=== PATIENT | female | born 1935 | race Caucasian/White ===

== ENCOUNTER 2021-03-29 07:27 | Day surgery (SDC) | payer OTHER ==
[2021-03-28 15:23] LABS: Absolute Lymphocytes (CBC) 1.2 K/uL (0.7-4.9); Basophils % 0.3 % (0-1.3); Hematocrit 30.7 % (36.0-45.0); Lymphocytes % 10.7 % (15.3-44.8)
[2021-03-28 15:34] LABS: Protime INR 0.93
[2021-03-29] MEDS ORDERED: CEFAZOLIN/NS 1gm 1 GM/50 ML BAG ONE (07:50)
[2021-03-29] MEDS ORDERED: Ringers Lactate 0 ML IV ONE (07:50)
[2021-03-29] MEDS ORDERED: SCOPOLAMINE HYDROBROMIDE PATCH TD ONE (07:51)
[2021-03-29] MEDS ORDERED: NA CHLORIDE 0.9% 500 ML ONE (07:54)
[2021-03-29] MEDS ORDERED: VANCOMYCIN 1 GM/VIAL ONE (08:05)
[2021-03-29] MEDS ORDERED: BUPIVACAINE 0.25% PF 30 ML VIAL ONE (08:14)
[2021-03-29] MEDS ORDERED: CEFTRIAXONE 1 GM/NS 50 ML 1 GM/50 ML BAG IV ONE (08:15)
[2021-03-29] MEDS ORDERED: HEPARIN 500 UNIT/5 ML SYR IV ONE ×2 (08:17)
[2021-03-29] MEDS ORDERED: MIDAZOLAM HCL 2 MG/2 ML INJ ONE ×2 (08:20→11:35)
[2021-03-29] MEDS ORDERED: FENTANYL CITR 100 MCG/2 ML ONE ×2 (08:20→10:34)
[2021-03-29] MEDS ORDERED: propofoL 200 MG/20 ML VIAL IV ONE (08:20)
[2021-03-29] MEDS ORDERED: dexAMETHasone 10 MG/ML VIAL ONE (08:22)
[2021-03-29] MEDS ORDERED: GLYCOPYRROLATE 0.2 MG/ML SYR ONE (08:22)
[2021-03-29] MEDS ORDERED: LIDOCAINE 2% MPF 5 ML VIAL ONE (08:22)
[2021-03-29] MEDS ORDERED: ONDANSETRON 4 MG/2 ML VIAL ONE ×2 (08:22→11:22)
[2021-03-29] MEDS ORDERED: ROCURONIUM 50 MG/5 ML VIAL IV ONE (08:23)
[2021-03-29] MEDS ORDERED: NEOSTIGMINE 1 MG/ML -5 ML ONE (08:23)
[2021-03-29] MEDS ORDERED: HEPARIN 5000 UNIT/ML 1 ML VIAL ONE (08:38)
[2021-03-29] MEDS ORDERED: NS 0.9% VIAL 10 ML ONE (08:38)
[2021-03-29] MEDS ORDERED: LIDOCAINE 1% MPF 30 ML VIAL ONE (08:39)
[2021-03-29] MEDS ORDERED: NA CHLORIDE 0.9% 50 ML ONE (08:48)
[2021-03-29] MEDS ORDERED: EPHEDRINE SULF 50 MG/ML VIAL ONE (09:00)
[2021-03-29] MEDS ORDERED: CLINDAMYCIN 600MG/D5W 600 MG/50 ML BAG IV ONE (09:00)
[2021-03-29] MEDS ORDERED: Phenylephrine HCl 10 MG/ML 1 ML VIAL ONE (09:00)
--- NOTE | 2021-03-29 10:25 | RAD REPORT ---
EXAM DESCRIPTION: RAD - Fluoroscopy >1 Hr - 03/29/2021 9:58 am CLINICAL HISTORY: Device placement central venous catheter placement FINDINGS: A central venous catheter was placed. One limb lies within the superior vena cava. The oth er the right atrium. Thirty-one fluoroscopic spot images obtained. The examination was performed by Bob Rey Fluoroscopy time 1.5 minutes
[2021-03-29] MEDS ORDERED: Mastisol Adhesive Liq ONE (10:44)
--- NOTE | 2021-03-29 10:49 | P.OP ---
Preoperative diagnosis: End Stage Renal disease on Dialysis Postoperative diagnosis: End Stage Renal disease on Dialysis Primary procedure: Placement of Tunnelled RIGHT IJ HD Cateter under ultrasound and flouroscopy Secondary procedure: Laparoscopic placement of peritoneal dialysis catheter Other procedure(s): removal of double cuffed peritoneal dialysis catheter - non- functional Anesthesia: GETA + Local Estimated blood loss: <20cc Specimen: none Findings: dark non-pulsatile blood, intra-abdominal adhesions Complications: None Implants: Celeste Standard Double cuffed PD catheter, 19cm Hemosplit HD catheter Transferred to: Recovery Room Condition: Good
[2021-03-29] MEDS: HYDROMORPHONE HCL 1 MG/ML INJ ONE ×2 (11:17→11:44)
--- NOTE | 2021-03-29 11:31 | RAD REPORT ---
EXAM DESCRIPTION: Saida Single View03/29/2021 11:24 am CLINICAL HISTORY: Device placement/central venous catheter placement IMPRESSION: Central venous catheter with 1 limb in the superior vena cava. The other limb in the rig ht atrium No pneumothorax
[2021-03-29] MEDS: PROMETHAZINE INJ 25 MG/ML AMP ONE ×2 (11:52→12:12)
[2021-03-29] MEDS ORDERED: TRAMADOL HCL 50 MG TAB ONE (12:42)
[2021-03-29 13:15] VITALS: TEMP 97.6
[2021-03-29 14:40] VITALS: BP 135/77; O2SAT 99
--- NOTE | 2021-04-04 11:39 | OP ---
Date of Procedure: 03/30/2021 Surgeon: Ky Rey MD, Preoperative Diagnosis: End-stage renal disease, dependent upon dialysis. Postoperative Diagnosis: End-stage renal disease, dependent upon dialysis. Procedure Performed: 1.Placement of a tunneled right internal jugular hemodialysis catheter using ultrasound, fluoroscopy , and micro introducer set. 2.Laparoscopic placement of peritoneal double cuffed dialysis catheter. 3.Removal of double cuffed peritoneal dialysis catheter, which was nonfunctional. Anesthesia: General endotracheal plus local with 0.25% Marcaine. Estimated Blood Loss: 20 mL. Specimen: None. Findings: 1.Dark red nonpulsatile blood returned from right internal jugular hemodialysis catheter. Fluorosco py confirmed position of the hemodialysis catheter in the correct position. 2.Significant intraabdominal adhesions to the anterior abdominal wall from the omentum as well as fr om the previously placed peritoneal dialysis catheter completely contained within the scar tissue at the peritoneum. Complications: None. Implants: 1.Merit standard double-cuffed peritoneal dialysis catheter. 2.19 cm HemoSplit hemodialysis catheter. Disposition: The patient transferred to recovery room in good condition. Procedure In Detail: After informed was obtained, the patient was brought to the operating room, pre pped and draped in the usual sterile fashion after adequate anesthesia was achieved. The patient was placed in steep Trendelenburg position. I performed ultrasound evaluation and interrogation of the right internal jugular vein and found to be patent at this time. I numbed the overlying skin with 0. 5% Marcaine and at this point, inserted a micro introducer micropuncture needle into the internal jug ular vein under ultrasound guidance without incident or complication. I then advanced the micro wire at this point without incident or complication. At this point, fluoroscopy confirmed position of th e micro wire in the right superior vena cava. At this point, I placed the micro introducer, removed the micro wire, and advanced the standard wire. Ectopy was noted on the laboratory monitor as well as confi rmed position with the fluoroscopy at this point. I then removed the microintroducer sheath and left the wire in place. I made a separate incision on the chest wall and after anesthetizing the tract t o the insertion site, I passed a 19 cm HemoSplit catheter over the collarbone and brought it out thro ugh the insertion site. Sequential dilatation was performed, at this point, with minimal difficulty. However, the introducer sheath did not go in easily at this point and no blood was returned after p assing the introducer sheath. At this point, I backed the introducer sheath out, readvanced the wire prior to removal and found it to be in good anatomic position. At this point, I then advanced the i ntroducer sheath without incident or complication and dark red nonpulsatile blood was returned and po sition was confirmed with fluoroscopy. I then inserted the 19 cm catheter into the superior vena cav a under fluoroscopy guidance. At this point, the wire was removed and catheter was found to be in go od position. The wire was removed prior to the catheter introduction. The catheter was then introdu jerson into the superior vena cava under fluoroscopic guidance. At this point, the catheter withdrew da rk red nonpulsatile blood easily and both ports flushed quite easily with saline. I then packed thes e ports with heparin solution/super flushed and placed caps on the end of the catheter at this point and performed 1 last chest x-ray to confirm position of the catheter in the SVC, which was found to b e in good position at this point. I then secured the catheter using 2-0 nylon sutures and closed the introduction site with a single interrupted 2-0 nylon suture and sterile dressing placed over top. The patient was then taken out of the Trendelenburg position. At this point, I then turned my attent ion to placement of a laparoscopic peritoneal dialysis catheter. After appropriately anesthetizing t he skin in the left upper quadrant, I made a small stab incision and a 5 mm 0-degree optical trocar w as introduced in the abdomen without any evidence of complication. Insufflation was obtained to 15 m mHg, at this time. No injury to vital structures upon entering the abdomen. Additional trocar site chose in the left mid abdomen. This was similarly anesthetized, sharply incised and a 5 mm trocar wa s placed under direct visualization without any evidence of complication. At this point, I placed th e patient in Trendelenburg position in and found that there was significant intraabdominal adhesions particularly from the omentum to the anterior abdominal wall and scar tissue/omental adhesions around the insertion of the previously placed right-sided abdominal peritoneal dialysis catheter. At this point, the abdomen was previously mapped preoperatively for placement of the Merit double cuffed peyton dard peritoneal dialysis catheter. At this point, I palpated the area and inspected it intraperitone ally and found it to be a good landing zone for the hemodialysis catheter. I made an incision overly ing the previous sentinel jesenia and inserting the introducing cannula at approximately 30 degree angle , I then performed sequential dilatation of the insertion catheter sheath and then placed the cathete r curling the catheter toward the pelvis. At this point, I ensured the distal cuff was in the rectus sheath and following the map markings from the exit site, I brought the catheter using the tunneling device out through a separate stab incision which was previously stencilled on the abdominal wall on the left side. At this point, the catheter was releasing air and fluid from the abdomen and a cap w as placed on at this point. I then desufflated the abdomen at this point and left the trocars in nancy ce. I then inserted 1 L of saline under infusion at this point into the peritoneal cavity and placed the IV back on the floor to allow for return of 950 cc return within 5 minutes of abdominal effluent without manipulation. At this point, I capped the tubing, disconnected at this point, and placed a cap on the end of the tubing. I flushed the tube with saline one last time and packed with heparin. I then capped the tube once again. The patient was positioned back in neutral position. Insufflati on was obtained at this point. The catheter found to be in good position. I then closed the incisio ns of the insertion with 3-0 Vicryl in the deep dermal plane and 4-0 Monocryl at the subcutaneous pos ition. At this point, I turned my attention to removal of the previously placed peritoneal dialysis catheter in the right abdomen, which was nonfunctional. I then made an incision at the insertion sit e and was able to bring the subcutaneous cuff into the surgical field and using a combination of benigno p and blunt dissection, I was able to remove this cuff at this point. I then palpated down to the di stal cuff and made an incision through the previous incision over the abdominal wall and palpated the deep rectus cuff at this point and pulled this into the surgical field and once again removed the cu ff adhesive tissue surrounding this cuff to allow free mobility. At this point, I cut the catheter i n half with Kamara scissors and removed the distal aspect of the catheter and then pulled the remaining catheter out of the peritoneal cavity. I palpated the area and found it to be quite closed at this point without any leakage of air or fluid from the peritoneal cavity and as such, I irrigated these a reas and closed them with a 3-0 Vicryl on the deep cuff site as well as subcutaneous 4-0 Monocryl in a running fashion and Dermabond placed over top. I closed the catheter exit site with 2-0 nylon sutu re in an interrupted fashion. I then re-insufflated the abdomen once again and inspected one last ti me, and I did adhesiolysis laparoscopically using the LigaSure device to take the scar tissue down fr om the right abdominal insertion site to allow for minimal adhesions to the anterior abdominal wall h opefully to preclude internal herniation around the significant fibrous tissue, which was at the prev iously placed catheter insertion site. At this point, the abdomen was desufflated under direct visua lization. All the trocars were removed. All trocar sites were then copiously irrigated after the abd omen was completely desufflated under direct visualization without any evidence of complication. The skin incisions were copiously irrigated and dried and closed with a 4-0 Monocryl in a running fashio n, Dermabond placed over top. The patient tolerated the procedure well without evidence of complicat ion and transferred to PACU in good condition. All counts were correct at the end of the case. ABBIE/HERBIE Voice ID: [id number] Report ID: [id number]
== END 2021-03-29 14:25 | disposition home or self-care (01) ==
LOC: OR 07:27
PROVIDERS: ATTEND Surgery
PROC: 0JH83XZ Insertion of Tunneled Vascular Access Device into Abdomen Subcutaneous Tissue and Fascia, Percutaneous Approach (ICD-10-PCS; 2021-03-29)
PROC: 0JH60WZ Insertion of Totally Implantable Vascular Access Device into Chest Subcutaneous Tissue and Fascia, Open Approach (ICD-10-PCS; 2021-03-29)
PROC: 0JPT3XZ Removal of Tunneled Vascular Access Device from Trunk Subcutaneous Tissue and Fascia, Percutaneous Approach (ICD-10-PCS; principal; 2021-03-29 08:00)
DX: N18.6 End stage renal disease (principal); Z99.2 Dependence on renal dialysis; T85.691A Other mechanical complication of intraperitoneal dialysis catheter, initial encounter; Z20.822 Contact with and (suspected) exposure to COVID-19
CPT/HCPCS: 49324; 49422; 36561; 85025; 80048; 36415; 86900; 86850; 85610; 86901; 88300; 85730; 71045; U0003; J2704; J2550; J1644 ×2; J2250 ×2; J3010 ×2; J1100; J1170; J2710; J1642; J0690; J7040; J2405 ×2; C1752; J0696; J2370; J3370; J7120

== ENCOUNTER 2021-05-11 11:11 | Day surgery (SDC) | payer OTHER ==
[2021-05-10 12:30] LABS: Potassium 5.2 mmol/L (3.5-5.1)
[2021-05-11] MEDS ORDERED: Ringers Lactate 0 ML IV ONE (11:37)
[2021-05-11] MEDS ORDERED: NA CHLORIDE 0.9% 500 ML ONE (11:38)
[2021-05-11] MEDS ORDERED: FENTANYL CITR 100 MCG/2 ML ONE (11:44)
[2021-05-11] MEDS ORDERED: propofoL 200 MG/20 ML VIAL IV ONE (11:45)
[2021-05-11] MEDS ORDERED: LIDOCAINE 2% MPF 5 ML VIAL ONE (11:45)
[2021-05-11] MEDS: LIDOCAINE 1% W/EPI 1:100,000 MDV 20 ML VIAL ONE ×2 (11:47→12:58)
[2021-05-11 12:53] LABS: Potassium 5.6 mmol/L (3.5-5.1)
--- NOTE | 2021-05-11 13:07 | P.OP ---
Preoperative diagnosis: Attention to Hemodialysis Catheter Postoperative diagnosis: Attention to Hemodialysis Catheter Primary procedure: removal of RIGHT internal jugular tunnelled hemodialysis cath Anesthesia: mac + local Estimated blood loss: <5cc Specimen: catheter for ID only Findings: no bleeding @ end of procedure Complications: None Transferred to: Recovery Room Condition: Good
[2021-05-11 13:42] VITALS: BP 118/88; TEMP 96.9; O2SAT 98
[2021-05-11] MEDS ORDERED: HYDROCODONE/APAP 5/325 MG TAB ONE (13:42)
--- NOTE | 2021-05-11 13:52 | OP ---
Date of Procedure: 05/11/2021 Surgeon: Ky Rey MD, Preoperative Diagnosis: Attention to hemodialysis catheter. Postoperative Diagnosis: Attention to hemodialysis catheter. Procedure Performed: Removal of a right internal jugular tunneled hemodialysis catheter. Anesthesia: MAC plus local with 0.5% Marcaine without epinephrine. Estimated Blood Loss: 5 cc. Specimen: Catheter for ID only. Findings: No bleeding at the end of the procedure. Complications: None. Disposition: The patient was transferred to the recovery room in good condition. Procedure In Detail: After informed consent was obtained, the patient was brought to the operating r oom, prepped and draped in the usual sterile fashion. After adequate anesthesia was achieved, the pa tient was placed in steep Trendelenburg position. Suture scissors were used to remove the previously placed suture. I then dilated up the tract leading to the cuff. The cuff was then brought into the field, circumferentially dissected free using a combination of sharp and blunt dissection with sciss ors. After this was completely dissected free from the surrounding tissue, the patient remained in s teep Trendelenburg position. Pressure held at the internal jugular site as well as at the exit site and the catheter was removed at this point and sent off for ID only. The patient was then positioned in the head-up position after being held in pressure for approximately 2 minutes in the Trendelenbur g position. The pressure continued to be held for approximately 5 more minutes until no bleeding was appreciated. The wound was then copiously irrigated and closed with interrupted 2-0 nylon suture, a nd a sterile dressing placed over the top. The patient tolerated the procedure well without incident or complication. Transferred to PACU in good condition. All counts were correct at the end of the case. TK/MODL Voice ID: [id number] Report ID: [id number]
== END 2021-05-11 14:15 | disposition home or self-care (01) ==
LOC: OR 11:11
PROVIDERS: ATTEND Surgery
PROC: 05PY03Z Removal of Infusion Device from Upper Vein, Open Approach (ICD-10-PCS; principal; 2021-05-11 13:00)
DX: Z45.2 Encounter for adjustment and management of vascular access device (principal); I12.0 Hypertensive chronic kidney disease with stage 5 chronic kidney disease or end stage renal disease; N18.6 End stage renal disease; K21.9 Gastro-esophageal reflux disease without esophagitis; Z88.0 Allergy status to penicillin; Z88.2 Allergy status to sulfonamides; Z20.822 Contact with and (suspected) exposure to COVID-19
CPT/HCPCS: 80048 ×2; 36415 ×2; 88300; 36589; U0003; J2704; J3010; J7040; J7120